=== PATIENT | male | born 1980 | race Two or more races ===

== ENCOUNTER 2023-05-03 09:38 | Inpatient (IN) | payer OTHER ==
[~2023-05-03] VITALS: Ht 175.3 cm; Wt 76.2 kg
[2023-05-03 11:44] LABS: HEMATOCRIT 41.6 % (39.0-48.0); HEMOGLOBIN 14.3 g/dL (13-16.00); MEAN CELL VOLUME 90.1 fL (80.0-100.00); MEAN CORPUSCULAR HGB CONC 34.4 g/dl (32.0-36.0); PLATELET COUNT 244 K/uL (150-450); RED BLOOD COUNT 4.62 M/uL (4.00-6.00); RED CELL DISTRIBUTION WIDTH 13.4 % (11.5-14.5)
[2023-05-03 11:52] LABS: URINE APPEARANCE Clear; URINE BILIRRUBIN Negative (NEGATIVE); URINE BLOOD Negative; URINE COLOR Yellow; URINE GLUCOSE Negative (NEGATIVE); URINE LEUKOCYTE Negative; URINE NITRATE Negative; URINE PROTEIN Negative (NEGATIVE); URINE UROBILINOGEN 0.2 E.U./dl
[2023-05-03 12:09] LABS: INR 1.03; PARTIAL THROMBOPLASTIN TIME 29.7 SECONDS (22.0-34.0); PROTHROMBIN TIME 10.8 SECONDS (9.0-11.5)
[2023-05-03 12:10] LABS: CALCIUM 9.3 mg/dL (8.5-10.1); GFR 81.55; POTASSIUM 3.72 mEq/L (3.5-5.1)
[2023-05-03 12:34] LABS: URINE BACTERIA 1.2 uL (0.0-1933); URINE EPITHELIAL CELLS 0.1 uL (0.0-38.8); URINE RBC 0.8 uL (0.0-20.8); URINE WBC 0.1 uL (0.0-23.2)
[2023-05-04 06:19] LABS: HEMATOCRIT 37.6 % (39.0-48.0); HEMOGLOBIN 12.8 g/dL (13-16.00); MEAN CELL VOLUME 89.2 fL (80.0-100.00); MEAN CORPUSCULAR HEMOGLOBIN 30.4 pg (27.00-32.0); MEAN CORPUSCULAR HGB CONC 34.1 g/dl (32.0-36.0); PLATELET COUNT 214 K/uL (150-450); RED BLOOD COUNT 4.22 M/uL (4.00-6.00); RED CELL DISTRIBUTION WIDTH 13.3 % (11.5-14.5)
[2023-05-04 06:47] LABS: ALBUMIN 3.4 gm/dL (3.4-5.0); CALCIUM 8.6 mg/dL (8.5-10.1); CREATININE SERUM 0.94 mg/dL (0.70-1.30); GFR 87.59; MAGNESIUM 1.9 mg/dL (1.8-2.4); PHOSPHOROUS 4.9 mg/dL (2.5-4.9); POTASSIUM 3.84 mEq/L (3.5-5.1)
[2023-05-04] MEDS ORDERED: INTESTINEX680 M1 PO (11:21)
[2023-05-04] MEDS ORDERED: OXYC1TAB9 PO (11:21)
[2023-05-04] MEDS ORDERED: AMOX-CLAV 875-1 EACH PO (11:21)
== END 2023-05-04 13:03 | disposition home or self-care (01) | DRG 399 ==
LOC: ER 09:39 → EDLOC 16:19 → SEC-K 16:19 → SURH 16:19
PROVIDERS: Emergency Medicine; ADMIT Surgery; ATTEND Surgery
PROC: BW21Y0Z Computerized Tomography (CT Scan) of Abdomen and Pelvis using Other Contrast, Unenhanced and Enhanced (ICD-10-PCS; 2023-05-03)
PROC: 0DTJ4ZZ Resection of Appendix, Percutaneous Endoscopic Approach (ICD-10-PCS; principal; 2023-05-03 16:00)
DX: K35.890 Other acute appendicitis without perforation or gangrene (principal); Z20.822 Contact with and (suspected) exposure to COVID-19